=== PATIENT | male | born 1995 | race Caucasian/White ===

== ENCOUNTER 2022-12-22 17:10 | Emergency (ER) | payer OTHER, SELFPAY ==
[2022-12-22 17:11] VITALS: BP 160/89; PULSE 97; RESP 14; TEMP 36.6; O2SAT 98; BMI 31.1
--- NOTE | 2022-12-22 18:08 | ED.RN ---
pain to left side. denies pain to flank area even with percussion. pt reports pain is more when he coughs sneezes or trys to control trunk while laying back
--- NOTE | 2022-12-22 18:24 | EDS_ITS ---
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 He was sore afterwards, including his low back, and his left lower quadrant. The other pains have improved, but his left lower quadrant is still painful, but only at certain times. He states when he lies supine, it hurts worse. When he does certain exertions it hurts worse, and when he sneezes it is really severe. However with just resting while sitting he does not have pain. He denies any nausea or vomiting, abnormal bowel movements or urination. No history of any abdominal s urgery before. PFSH PFSH Medical History no medical history no medical history Home Medications naproxen 500 mg tablet 500 mg PO BID PRN pain #14 tabs 12/22/22 [Rx Last Taken Unknown] Allergy/AdvReac Type Severity Reaction Status Date / Time No Known Allergies Allergy Verified 12/22/22 18:09 Surgical History History of tonsillectomy and adenoidectomy Surgical History no surgical history Social History Smoking Status: Current every day smoker tobacco type: cigarettes ROS ROS ED Constitutional Constitutional ED: Denies chills or fever(s) Eyes Eyes: Denies change in vision or diplopia ENT ENT ED: Denies rhinorrhea or sore throat Cardiovascular Cardiovascular: Denies chest pain or palpitations Respiratory/Chest Respiratory/Chest: Denies cough or dyspnea Gastrointestinal Gastrointestinal: Reports abdominal pain; Denies diarrhea, nausea or vomiting Genitourinary Genitourinary ED: Denies dysuria or hematuria Musculoskeletal Musculoskeletal: Denies back pain or neck pain Integumentary Denies abscess or rash Neurologic Neurologic: Denies headache(s), paresthesias or weakness Psychiatric Psychiatric: Denies anxiety or suicidal thoughts EXAM Physical Exam Const Vital Signs: 12/22/22 17:11 12/22/22 18:04 Temperature 98 F Temperature Source Temporal Pulse Rate 97 Respiratory Rate 14 Respiratory Effort Normal Respiratory Pattern Normal Blood Pressure 160/89 H Blood Pressure Mean 112 Pulse Ox 98 Oxygen Delivery Method Room Air Positive well nourished and well developed General Appearance ED: well developed and NAD HEENT Reports moist mucous membranes normocephalic and atraumatic Eyes PERRL and EOMs intact bilaterally Neck full ROM and supple Resp normal respiratory effort and clear to auscultation bilaterally Cardio regular rate, regular rhythm and no murmurs GI non-tender and non-distended Auscultation: normoactive bowel sounds Palpation: soft Back/Spine no CVA tenderness General Back: other FROM Extremity normal to inspection General Extremety ED: Negative for edema, pulses abnormal or tenderness General Extremity: Negative for edema or pulses abnormal Neuro oriented x3, CN's II-XII intact bilaterally and no sensory deficits noted Sensorium / Orientation: awake and alert Motor Exam: strength 5/5 throughout Skin no rashes or lesions noted and no wounds MDM MDM MDM Narrative Medical decision making narrative: Perform CT of the abdomen and pelvis as well as some blood work, he has a mild leukocytosis, urine negative, and the CT shows diverticulosis without signs of diverticulitis or any other acute process. I reviewed the images and the report and I agree with it. Patient is doing well ambulatory back and forth I will put him on some NSAIDs, I do suspect this is more musculoskeletal, and the work-up confirms that. Discussed following up he is comfortable with that plan. Lab Data Attestation: I reviewed the patient's lab results. Labs: Laboratory Results - last 24 hr 12/22/22 12/22/22 18:30 19:15 WBC 11.3 H RBC 5.45 Hgb 15.7 Hct 47.2 MCV 86.6 MCH 28.8 MCHC 33.3 RDW Std Deviation 40.4 RDW Coeff of [place] 12.9 Plt Count 330 MPV 10.2 Immature Gran % (Auto) 0.400 Neut % (Auto) 70.6 H Lymph % (Auto) 19.6 [place] % (Auto) 5.7 Eos % (Auto) 3.1 Baso % (Auto) 0.6 Absolute Neuts (auto) 8.0 H Absolute Lymphs (auto) 2.22 Nucleated RBC % 0 Sodium 139 Potassium 4.3 Chloride 105 Carbon Dioxide 30.0 Anion Gap 4 L BUN 12 Creatinine 0.78 Estim Creat Clear Calc 163.93 Est GFR (MDRD) Af Amer 152 Est GFR (MDRD) Non-Af 126 BUN/Creatinine Ratio 15.4 Glucose 96 Calcium 9.5 Urine Color Yellow Urine Clarity Clear Urine pH 7.0 Ur Specific [place] 1.010 Urine Protein Negative Urine Glucose (UA) Normal Urine Ketones Negative Urine Occult Blood Negative Urine Nitrite Negative Urine Bilirubin Negative Urine Urobilinogen Normal Ur Leukocyte Esterase Negative Urine RBC 0 SEEN Urine WBC 0 SEEN Ur Squamous Epith Cells 0-5 SEEN Urine Bacteria 0 SEEN Urine Mucus 0 SEEN Radiography Diagnostic Testing: Clinical Impression(s) from Imaging Studies Abdomen/Pelvis CT 12/22/22 18:24 IMPRESSION: Sigmoid diverticulosis without diverticulitis Electronically Signed: Juan Phipps MD at 20:17 EDT , Discharge Plan Triage Chief Complaint: Other, Pain/Inj ED Provider: Westley Yap Dx/Rx/DC Orders Clinical Impression: Strain of abdominal muscle Instructions: ED Muscle Strain, Abdomen Prescriptions: New naproxen 500 mg tablet 500 mg PO BID PRN (Reason: pain) Qty: 14 0RF Primary Care Provider: Care Physician,No Primary Referrals: Doctor,Your [Non-Staff] - 1 Week if not improving Disposition Disposition: Home, Self Care
--- NOTE | 2022-12-22 18:24 | CT_ITS ---
STUDY: CT ABDOMEN AND PELVIS WITH CONTRAST REASON FOR EXAM: Male, 27 years old. LLQ pain RADIATION DOSAGE (If Supplied By Facility): CTDIvol = ( 15.84 ) mGy, DLP = ( 1091.20 ) mGycm TECHNIQUE: Transaxial images were obtained from the dome of the diaphragm to the symphysis pubis without oral contrast. 100 CC ISOVUE 300 was administered. Sagittal and coronal images were reconstructed. Individualized dose optimization techniques were used for this CT. COMPARISON: None. FINDINGS: The visualized lung bases are unremarkable. The visualized portions of the heart are within normal limits. Normal liver. Normal gallbladder and extrahepatic biliary system. Normal spleen. Normal pancreas. Normal bilateral adrenal glands. Normal right kidney. Normal left kidney. Normal visualized stomach. Normal small intestine. There are multiple colonic diverticula consistent with diverticulosis. The appendix is visualized and appears normal. Normal abdominal aorta. Normal inferior vena cava. Normal retroperitoneum. Normal urinary bladder. Normal abdominal wall. Mild levoscoliosis of the lumbar spine. CT/Abdomen/Pelvis W IV Cont ONLY IMPRESSION: Sigmoid diverticulosis without diverticulitis Electronically Signed: Juan Phipps MD at 20:17 EDT ,
[2022-12-22 18:55] LABS: Absolute Lymphocyte Count 2.22 X10^3/uL (0.83-4.51); Basophil# 0.07 X10^3/uL; Basophil% 0.6 % (0-1); Eosinophil# 0.35 X10^3/uL; Eosinophils% 3.1 % (0-5); Hematocrit 47.2 % (40-54); Hemoglobin 15.7 g/dL (13.0-16.5); Lymphocyte # 2.22 X10^3/ul (0.83-4.51); Lymphocyte % 19.6 % (19-41); Mean Corp Hgb Conc 33.3 g/dL (32-36); Mean Corpuscular Hgb 28.8 pg (27.0-32.0); Mean Corpuscular Volume 86.6 fL (80-94); Mean Platelet Vol. 10.2 fl (6.2-12.0); Monocyte# 0.65 X10^3/uL; Monocyte% 5.7 % (0-10); NRBC Flagged by Analyzer 0 % (0-5); Neutrophil # 7.98 X10^3/uL (2.7-7.7); Neutrophil % 70.6 % (47-70); Platelet Count 330 K/mm3 (150-450); RBC Distribution Width CV 12.9 % (11.6-14.6); RBC Distribution Width SD 40.4 fl (35.1-43.9); Red Blood Count 5.45 M/mm3 (4.6-6.2); White Blood Count 11.3 K/mm3 (4.4-11.0)
[2022-12-22 19:11] LABS: Anion Gap 4 (5-15); BUN 12 mg/dL (7-18); BUN/Creat Ratio 15.4 RATIO (10-20); Calcium,Total 9.5 mg/dL (8.5-10.1); Chloride 105 mmol/L (98-107); Creatinine, Serum 0.78 mg/dL (0.70-1.30); EST Glomerular Filtration Rate 126 mL/min (>60); Est Glom Filt Rate - Afr Amer 152 mL/min (>60); Estimated Creatinine Clearance 163.93 ml/min; Glucose 96 mg/dL (74-106); Potassium 4.3 mmol/L (3.5-5.1); Sodium Level 139 mmol/L (136-145)
[2022-12-22 19:20] LABS: Bacteria 0 SEEN /hpf (None Seen); Mucous, Urine 0 SEEN /hpf (<or=2+); Red Blood Cells-Urine 0 SEEN /hpf (0-5); White Blood Cells 0 SEEN /hpf (0-5)
[2022-12-22 19:23] LABS: Color, Urine Yellow (Yellow); Glucose, Dipstick Normal (Normal); Ketone-Dipstick Negative (Negative); Leukocyte Esterase-Dipstick Negative /ul (Negative); Nitrite-Dipstick Negative (Negative); Occult Blood-Urine Negative /ul (Negative); Protein-Dipstick Negative (Negative); Urine Bilirubin Dipstick Negative (Negative); Urine Clarity Clear (Clear); Urine Urobilinogen Normal (Normal)
[2022-12-22 19:35] LABS: Squamous Epithelial Cells - UA 0-5 SEEN /hpf (0-5)
[2022-12-22 20:27] VITALS: RESP 18
== END 2022-12-22 21:23 | disposition home or self-care (01) ==
PROVIDERS: Emergency Provider Emergency Medicine; Visit Provider Emergency Medicine
DX: S39.011A Strain of muscle, fascia and tendon of abdomen, initial encounter (principal); F17.210 Nicotine dependence, cigarettes, uncomplicated; W22.09XA Striking against other stationary object, initial encounter; Y93.72 Activity, wrestling
CPT/HCPCS: 74177; 80048; 81001; 85025; 99283; A4216